=== PATIENT | female | born 1990 | race Two or more races ===

== ENCOUNTER 2018-05-17 15:33 | Emergency (ER) | payer SELFPAY ==
[~2018-05-17] VITALS: Ht 152.4 cm; Wt 78.0 kg
[~2018-05-17 15:33] MED LIST: LEVO112T2 PO
--- NOTE | 2018-05-17 16:32 | NUR ---
Patient discharged to home in stable conditon. Written and verbal after care instructions given. Patient verbalizes understanding of instructions.PT WALKS IN STEADY GAIT
== END 2018-05-17 16:35 | disposition home or self-care (01) ==
LOC: ER 15:34
DX: G43.909 Migraine, unspecified, not intractable, without status migrainosus (principal); R22.9 Localized swelling, mass and lump, unspecified; J45.909 Unspecified asthma, uncomplicated; E03.9 Hypothyroidism, unspecified; F17.200 Nicotine dependence, unspecified, uncomplicated; Z88.5 Allergy status to narcotic agent; Z88.8 Allergy status to other drugs, medicaments and biological substances
CPT/HCPCS: 99283; A4663